=== PATIENT | female | born 1975 | race Caucasian/White ===

== ENCOUNTER 2024-06-28 15:00 | Emergency (ER) | payer BC, SELFPAY ==
--- NOTE | 2024-06-28 15:05 | ED_ITS ---
HPI - General Adult General Stated complaint: medication refill Time Seen by Provider: 06/28/24 15:01 Source: patient Mode of arrival: ambulatory Limitations: no limitations History of Present Illness HPI narrative: Patient is a 48-year-old female requesting refill of Xanax. Patient lives in [place] and had 60 count 30 day supply filled 05/31. Related Data Home Medications ?Medication ?Instructions ?Recorded ?Confirmed ?Last Taken ?Type alprazolam 1 mg tablet 1 mg PO BID PRN anxiety 06/28/24 06/28/24 Unknown History atorvastatin 20 mg tablet 20 mg PO QPM 06/28/24 06/28/24 Unknown History buspirone 10 mg tablet 10 mg PO TID 06/28/24 06/28/24 Unknown History duloxetine 60 mg capsule,delayed 60 mg PO .QD 06/28/24 06/28/24 Unknown History release hydroxyzine pamoate 50 mg capsule 50 mg PO Q8H PRN anxiety 06/28/24 06/28/24 Unknown History ibuprofen 800 mg tablet 800 mg PO Q8H 06/28/24 06/28/24 Unknown History terbinafine HCl 250 mg tablet 250 mg PO .QD 06/28/24 06/28/24 Unknown History Review of Systems Review of Systems: All systems reviewed & are unremarkable except as noted in HPI and below Constitutional: Constitutional: Denies body ache(s), Denies chills, Denies fatigue, Denies fever(s), Denies headache(s), Denies malaise and Denies weakness Eyes: Eyes: Denies blurry vision, Denies irritation and Denies loss of vision ENT: Denies otalgia, Denies headache(s), Denies nasal discharge, Denies sinus pain and Denies sore throat Cardiovascular: Cardiovascular: Denies chest pain, Denies irregular heart rhythm and Denies dyspnea Respiratory: Respiratory: Denies dyspnea Gastrointestinal: Gastrointestinal: Denies abdominal pain, Denies melena, Denies hematochezia, Denies diarrhea, Denies nausea and Denies vomiting Musculoskeletal: Musculoskeletal: Denies back pain, Denies myalgias and Denies arthralgias Integumentary/Breasts: Skin/Breast: Denies pruritus and Denies rash Neurologic: Denies headache(s), Denies loss of vision and Denies weakness Psychiatric: Psychiatric: Reports no additional psychiatric complaints Endocrine: Endocrine: Denies fatigue PMFSH Comments At time of signature, agree with nursing past medical, surgical, social and family history. There is no relevant family history pertinent to the presenting complaint. Exam Const: General: cooperative, healthy appearing, comfortable, no acute distress and well nourished Nutritional Appearance: well nourished Orientation/consciousness: patient oriented x3 Limitations: no limitations HENMT: Head: normal to inspection, normocephalic and atraumatic Ears: hearing grossly normal bilaterally and external ears normal Face/Nose/Sinus: Normal external nose present, normal facial exam and face symmetric Face and sinus: normal facial exam and face symmetric Mouth: Yes lip normal Eyes: General: appearance normal, both eyes and all related structures Alignment and Position: alignment normal and position normal Periorbital: periorbital findings normal Eyelids: eyelids normal Pupils: Equal, round and reactive pupils present EOM: EOMs intact bilaterally Neck: Neck: normal visual inspection, full ROM and supple Chest: Chest palpation & inspection: normal inspection of the chest Resp: Effort & Inspection: normal respiratory effort and able to speak in complete sentences Auscultation: clear to auscultation bilaterally Cardio: Rate: regular rate Rhythm: regular rhythm Heart sounds: S1 normal heart sound present and S2 normal heart sound present GI: Inspection: normal to inspection Skin: General skin exam: normal color and no rashes or lesions noted Neuro: General: patient oriented x3 and moves all extremities Cranial nerves: Yes Equal, round and reactive pupils present Speech: normal speech Gait exam (Neuro): Normal gait present Extrem: General: normal to inspection, full ROM and no edema Psych: Appearance: grossly normal and well kempt Mental Status: mental status grossly normal Speech and movement: Normal speech and movement present Affect: normal affect Attitude: cooperative Thought process: Normal thought process present Course Course Emergency Course: Patient is aware of diagnosis, understands and agrees to treatment plan. Anticipatory guidance given. Patient agrees to follow-up as directed and is aware of reasons to seek care at the emergency department. Portions of this record may have been created with voice recognition software Level of Care: Express Care Visit Vital Signs Vital signs: Reviewed Medical Decision Making MDM Narrative Medical decision making narrative: Patient states she lives in [place] and her controlled substance provider cannot call across state lines and was told to come to urgent care to have c ontrolled substances filled. Discussed limitations of prescribing medications. Patient as to where she should go. Discussed going to the ER. Pt well hydrated appearing, in no respiratory distress, hemodynamically stable. Recommend supportive care. The patient is stable at time of discharge the clinical impression was discussed and the patient was given the opportunity to ask questions, which were addressed as completely as possible given the information available at present. Anticipatory guidance and return to care precautions were discussed and the importance of primary care follow-up was stressed and encouraged. The patient voiced understanding of the plan, indications to return, and the need for follow-up. Exam findings show no acute concerns or changes Patient is appropriate for outpatient treatment and follow-up. Differential Diagnosis Differential Diagnosis: Medication refill Vital Signs Vital Signs: Reviewed Discharge Plan Discharge Clinical Impression: Normal exam, Medication refill Patient Disposition: Home, Self-Care Condition: Stable Instructions: Normal Exam (ED) Additional Instructions: 1) Please follow-up with your primary care doctor in the next 1-2 days. 2) If you have any worsening of symptoms or any other urgent concerns please go to the ER. 3) Please take medications as prescribed and continue taking your home medications as usual. 4) Please read and follow information included in discharge instructions. Your blood pressure was elevated above 120/80 today at Urgent Care. This puts you above the threshold for follow up visit with a primary care provider. High blood pressure does not usually cause any symptoms, however it may lead to kidney failure, stroke, heart disease just to name a few if untreated . Many people are anxious when seeing a provider or nurse. As a result, you are not diagnosed with hypertension at this time unless your blood pressure is persistently high at two office visits at least one week apart. Some things that can help lower blood pressure are lifestyle modifications, such as light exercise, decreased salt in diet, and weight loss. It is important to follow up with a PCP about this within 1 week. Patient Language: Argentine Follow-up/Referrals: PHYSICIAN NOT ON STAFF,NONSTAFF [Primary Care Provider] - Time of Disposition: 15:52
[2024-06-28 15:09] VITALS: BP 144/90; PULSE 59; RESP 16; TEMP 36.2; O2SAT 99
== END 2024-06-28 15:52 | disposition home or self-care (01) ==
PROVIDERS: Emergency Provider Nurse Practitioner Family
DX: Z76.0 Encounter for issue of repeat prescription (principal)
CPT/HCPCS: 99211; G0463

== ENCOUNTER 2024-06-28 16:06 | Emergency (ER) | payer BC, SELFPAY ==
[2024-06-28 17:01] VITALS: BP 152/84; PULSE 64; RESP 16; TEMP 36.7; O2SAT 100
--- NOTE | 2024-06-28 17:07 | ED_ITS ---
HPI - General Adult General Chief complaint: Unspecified Stated complaint: I need a script refill Time Seen by Provider: 06/28/24 17:07 History of Present Illness HPI narrative: 48-year-old female with a history of anxiety presents emergency department with request for her alprazolam to be refilled. Patient is prescribed 1 mg b.i.d. p.r.n. for anxiety. Per chart review she had 60 pills that were filled on 05/31/2024 by Antonio Collado. Patient states she is traveling to this area to visit her daughter and is not supposed to go home for 15 more days but has ran out of her Alprazolam. She lives in [place]. She is requesting a refill. She has no other complaints. Per the patient her doctor is unable to prescribe the on state lines. Related Data Home Medications ?Medication ?Instructions ?Recorded ?Confirmed ?Last Taken ?Type alprazolam 1 mg tablet 1 mg PO BID PRN anxiety 06/28/24 06/28/24 Unknown History atorvastatin 20 mg tablet 20 mg PO QPM 06/28/24 06/28/24 Unknown History buspirone 10 mg tablet 10 mg PO TID 06/28/24 06/28/24 Unknown History duloxetine 60 mg capsule,delayed 60 mg PO .QD 06/28/24 06/28/24 Unknown History release hydroxyzine pamoate 50 mg capsule 50 mg PO Q8H PRN anxiety 06/28/24 06/28/24 Unknown History ibuprofen 800 mg tablet 800 mg PO Q8H 06/28/24 06/28/24 Unknown History terbinafine HCl 250 mg tablet 250 mg PO .QD 06/28/24 06/28/24 Unknown History Allergies Allergy/AdvReac Type Severity Reaction Status Date / Time sulfamethoxazole (From Allergy Severe Anaphylaxis Verified 06/28/24 17:04 Bactrim) trimethoprim (From Bactrim) Allergy Severe Anaphylaxis Verified 06/28/24 17:04 cephalexin (From Keflex) Allergy Anaphylaxis Verified 06/28/24 17:04 Review of Systems Review of Systems: All systems reviewed & are unremarkable except as noted in HPI and below Exam Narrative: GENERAL: Well-appearing, well-nourished, and in no acute distress. HEAD: Normocephalic, atraumatic. EYES: EOMI. ENT: Nares clear, no rhinorrhea or epistaxis. Mucous membranes moist. NECK: Supple. CHEST: Clear to auscultation. No respiratory distress. HEART: Regular rate and rhythm. No murmur heard. Normal peripheral pulses. EXTREMITIES: Normal range of motion. No edema. SKIN: Warm, dry, no rash. NEURO: No focal deficits. Alert and oriented x3 Course Vital Signs Vital signs: Vital Signs Temperature 98.0 F 06/28/24 17:01 Pulse Rate 64 06/28/24 17:01 Respiratory Rate 16 06/28/24 17:01 Blood Pressure 152/84 H 06/28/24 17:01 Pulse Oximetry 100 06/28/24 17:01 Oxygen Delivery Room Air 06/28/24 17:01 Temperature 98.0 F 06/28/24 17:01 Pulse Rate 64 06/28/24 17:01 Respiratory Rate 16 06/28/24 17:01 Blood Pressure 152/84 H 06/28/24 17:01 Pulse Oximetry 100 06/28/24 17:01 Oxygen Delivery Room Air 06/28/24 17:01 Medical Decision Making [facility] Narrative Medical decision making narrative: 48-year-old female with a history of anxiety presents to emergency department to refill her alprazolam. Vitals with elevated blood pressure, otherwise unremarkable. She has no other complaints and is resting comfortably in exam bed. Per chart review she had 60 pills of 1 mg alprazolam filled on 05/31/2024. She has been getting 60-75 pills of 1mg Alprazolam filled monthly for 1 year. Discussed I will only provide a couple pills to get her through until she can follow up with her psychiatrist as it is inappropriate to fill her controlled medications in the ED. return precautions discussed. She is agreeable with the plan verbalized understanding. Discharged in stable condition. Vital Signs Vital Signs: Vital Signs Temperature 98.0 F 06/28/24 17:01 Pulse Rate 64 06/28/24 17:01 Respiratory Rate 16 06/28/24 17:01 Blood Pressure 152/84 H 06/28/24 17:01 Pulse Oximetry 100 06/28/24 17:01 Oxygen Delivery Room Air 06/28/24 17:01 Temperature 98.0 F 06/28/24 17:01 Pulse Rate 64 06/28/24 17:01 Respiratory Rate 16 06/28/24 17:01 Blood Pressure 152/84 H 06/28/24 17:01 Pulse Oximetry 100 06/28/24 17:01 Oxygen Delivery Room Air 06/28/24 17:01 Discharge Plan Discharge Clinical Impression: Medication refill Patient Disposition: Home, Self-Care Condition: Stable Instructions: Antibiotic Form, Anxiety (ED) Additional Instructions: Follow-up with your primary care provider. Return to the emergency department if you develop thoughts of harming herself or other people. Patient Language: Greenlandic Prescriptions: New alprazolam 1 mg tablet 1 mg PO BID PRN (Reason: anxiety) Qty: 5 0RF No Action atorvastatin 20 mg tablet 20 mg PO QPM hydroxyzine pamoate 50 mg capsule 50 mg PO Q8H PRN (Reason: anxiety) buspirone 10 mg tablet 10 mg PO TID terbinafine HCl 250 mg tablet 250 mg PO .QD alprazolam 1 mg tablet 1 mg PO BID PRN (Reason: anxiety) Rx Instructions: FILLED WITH 30 DAY SUPPLY #60 ON 05/31/24 duloxetine 60 mg capsule,delayed release(DR/EC) 60 mg PO .QD ibuprofen 800 mg tablet 800 mg PO Q8H Follow-up/Referrals: PHYSICIAN NOT ON STAFF,NONSTAFF [Primary Care Provider] -
== END 2024-06-28 17:25 | disposition home or self-care (01) ==
LOC: ANHED 17:24
PROVIDERS: Emergency Provider Physician Assistant
DX: F41.9 Anxiety disorder, unspecified (principal); Z76.0 Encounter for issue of repeat prescription; Z79.899 Other long term (current) drug therapy
CPT/HCPCS: 99281; 99283